=== PATIENT | male | born 1945 | race Caucasian/White ===

== ENCOUNTER 2022-06-10 17:04 | Observation (INO) ==
[2022-06-10 17:58] LABS: Basophils # 0.1 10*3/uL (0.0-0.2); Basophils % 0.6 % (0.0-0.8); Eosinophils # 0.3 10*3/uL (0.0-0.87); Hematocrit 39.7 VOL% (42.0-52.0); Hemoglobin 13.4 GM/DL (14.0-18.0); Immature Granulocytes % 0.4 %; Immature Granulocytes Absolute 0.04 #; Lymphocytes # 2.4 10*3/uL (1.4-4.0); Lymphocytes % 21.6 % (21.2-54.2); Mean Corpuscular HGB Conc 33.8 GM/DL (32-36); Mean Corpuscular Volume 102.3 FL (87-102); Mean Platelet Volume 10.6 FL (9.6-12.0); Monocytes # 1.3 10*3/uL (0.11-0.8); Monocytes % 12.2 % (1.7-12.7); Neutrophils % 62.2 % (38.7-73.9); Platelet Count 267 T/CUMM (130-400); Red Blood Count 3.88 MC/CUMM (3.8-5.5); Red Cell Distribution Width 13.9 % (9.3-17.3); White Blood Count 10.9 T/CUMM (4-12)
[2022-06-10 18:37] LABS: Albumin 2.9 G/DL (3.4-5.0); Bilirubin,Total 0.5 MG/DL (0.20-1.00); Calcium 9.2 MG/DL (8.5-10.1); Osmolality,Calculated 282.1 MOS/KG (273-304); Total Protein 7.1 G/DL (6.4-8.2)
[2022-06-10] MEDS ORDERED: diphenhydrAMINE CAP 25 MG CAPSULE PO PRN (21:07)
[2022-06-10] MEDS ORDERED: GLUCAGON 1 MG VIAL IM PRN ×2 (21:07)
[2022-06-10] MEDS ORDERED: DEXTROSE 10% 250 ML BAG IV PRN (21:07)
[2022-06-10] MEDS ORDERED: guaiFENesin/DM ER 600-30 MG TABLET PO PRN (21:07)
[2022-06-10] MEDS ORDERED: ZALEPLON 5 MG CAPSULE PO PRN (21:07)
[2022-06-10] MEDS ORDERED: ONDANSETRON 4 MG/2 ML VIAL IV PRN (21:07)
[2022-06-10] MEDS ORDERED: DEXTROSE 50% 25 GM/50 ML VIAL IV PRN (21:07)
[2022-06-10] MEDS ORDERED: hydrALAZINE 20 MG/1 ML VIAL IV PRN (21:07)
[2022-06-10] MEDS ORDERED: ACETAMINOPHEN 325 MG TABLET PO PRN (21:07)
[2022-06-10] MEDS ORDERED: NICOTINE 21 MG/24 HR PATCH TRANSDERM PRN (21:07)
[2022-06-10] MEDS: HEPARIN 5,000 UNIT/1 ML VIAL SUBCUT SCH (22:40)
[2022-06-10] MEDS ORDERED: ALBUTEROL/IPRATROPIUM 3 ML NEB RESP TX ONE (23:55)
[2022-06-11] MEDS: ALBUTEROL/IPRATROPIUM 3 ML NEB RESP TX SCH ×3 (01:27→13:16)
[2022-06-11 06:15] LABS: Basophils # 0.1 10*3/uL (0.0-0.2); Basophils % 0.6 % (0.0-0.8); Eosinophils # 0.4 10*3/uL (0.0-0.87); Eosinophils % 3.4 % (0.00-10.9); Hematocrit 40.1 VOL% (42.0-52.0); Hemoglobin 13.5 GM/DL (14.0-18.0); Immature Granulocytes % 0.4 %; Immature Granulocytes Absolute 0.04 #; Lymphocytes # 2.3 10*3/uL (1.4-4.0); Lymphocytes % 22.3 % (21.2-54.2); Mean Corpuscular HGB Conc 33.7 GM/DL (32-36); Mean Corpuscular Volume 102.6 FL (87-102); Mean Platelet Volume 10.9 FL (9.6-12.0); Monocytes # 1.3 10*3/uL (0.11-0.8); Monocytes % 12.4 % (1.7-12.7); NRBC # 0.02 10*3/uL; Neutrophils % 60.9 % (38.7-73.9); Platelet Count 238 T/CUMM (130-400); Red Blood Count 3.91 MC/CUMM (3.8-5.5); Red Cell Distribution Width 13.6 % (9.3-17.3); White Blood Count 10.4 T/CUMM (4-12)
[2022-06-11 06:29] LABS: Calcium 9.1 MG/DL (8.5-10.1); Osmolality,Calculated 279.7 MOS/KG (273-304); Potassium 3.7 MMOL/L (3.5-5.1)
[2022-06-11] MEDS ORDERED: MAGNESIUM SULF RIDER 4 GM/100 ML PREMIX IV ONE (08:00)
[2022-06-11] MEDS: INSULIN LISPRO 100 UNIT/ML SUBCUT SCH ×2 (08:45→12:01)
[2022-06-11] MEDS: HEPARIN 5,000 UNIT/1 ML VIAL SUBCUT SCH (08:45)
[2022-06-11] MEDS ORDERED: PANTOPRAZOLE 40 MG TABLET PO SCH (09:00)
[2022-06-11 11:50] VITALS: BP 145/71
== END 2022-06-11 15:12 | disposition home or self-care (01) ==
LOC: N.EDINP 17:04 → N.ED 17:04 → N.3E 23:16
PROVIDERS: ADMIT Internal Medicine; ATTEND Internal Medicine